=== PATIENT | female | born 1990 ===

== ENCOUNTER 2018-09-13 10:51 | Day surgery (SDC) | payer BC ==
[2018-09-12 13:27] VITALS: BMI 24.7
[2018-09-13 11:37] VITALS: O2SAT 100
[2018-09-13] MEDS ORDERED: Propofol 10 mg/ml Inj (20 ML) ONE ×3 (12:56→14:26)
[2018-09-13] MEDS ORDERED: Midazolam 2 MG/2 ML VIAL ONE (12:57)
[2018-09-13] MEDS ORDERED: Lactated Ringer's 1,000 ML IV ONE (13:30)
[2018-09-13 14:37] VITALS: BP 110/59; PULSE 61; RESP 18; TEMP 97.9
== END 2018-09-13 14:35 | disposition home or self-care (01) ==
LOC: C.ENDO 10:51
PROVIDERS: ATTEND Internal Medicine Gastroenterology
DX: R10.12 Left upper quadrant pain (principal); R19.4 Change in bowel habit; K29.70 Gastritis, unspecified, without bleeding; K64.8 Other hemorrhoids
CPT/HCPCS: 43239; 45380; 84703; 88305; J2704; J7120

== ENCOUNTER 2019-02-25 18:40 | Outpatient (CLI) | payer BC | END 2019-02-25 18:41 | disposition home or self-care (01) | LOC: C.SLEEP 18:41 | DX: G47.33 Obstructive sleep apnea (adult) (pediatric) (principal) ==